=== PATIENT | male | born 1980 | race Caucasian/White ===

== ENCOUNTER 2016-12-06 10:19 | Emergency (ER) | payer MEDICAID ==
[~2016-12-06] VITALS: Ht 175.3 cm; Wt 66.5 kg
[2016-12-06 10:21] VITALS: Ht 175.3 cm; Wt 66.5 kg
--- NOTE | 2016-12-06 10:45 | ERD ---
ER Documentation Chief Complaint Date/Time DATE: 12/06/16 TIME: 10:43 Chief Complaint Pt bit by dog to R forearm 1 week ago. HPI 36-year-old male otherwise healthy presents with a dog bite to the right forearm that occurred approximately a week and a half ago. He states that he was walking his pit bull and there was a different dog that was becoming aggressive towards his dog and it has subsequently been him. He reports wound care that was done by himself at home, he has been washing it with hydrogen peroxide. He states that his pain is gone after taking ibuprofen. He has not had any fevers or chills. No difficulty with movement of the arm. His last tetanus shot was approximately 1-2 years ago. Patient states that he needs a work note to return tomorrow. ROS All systems reviewed and are negative except as per history of present illness. Physical Exam Vitals Vital Signs Date Time Temp Pulse Resp B/P Pulse Ox O2 Delivery O2 Flow Rate FiO2 12/06/16 10:21 97.3 87 18 127/75 98 Physical Exam General: Well-developed, well-nourished. The patient appears in no acute distress. HEENT: Head is normocephalic, atraumatic. No scleral icterus. Neck: Supple. Nontender. Lungs: Clear to auscultation. Normal air movement. Heart: Regular rate and rhythm. S1 and S2 are normal. No murmurs, gallops, or rubs. Abdomen: Nondistended. Extremities: No clubbing or cyanosis. Moving extremities x 4. No weakness. He is able to make a fist. Neurologic: Alert and oriented 3. No focal deficits. Normal speech and gait. Skin: Right forearm has multiple scab-like wound on the forearm, ulnar aspect of the wrist as well as the right elbow. They are dry and intact, no erythema, no drainage. Procedures/MDM 36-year-old male comes in with a dog bite from over a week ago on his right forearm, and the area is already healing, dry and intact. Wound shows no evidence of infection, foreign body, neurologic injury, vascular injury, open joint or tendon laceration. Patient appropriate for outpatient follow up. Departure Diagnosis: Primary Impression: Dog bite Condition: Good Patient Instructions: Dog Bite CHERYL MORENO PA-C Dec 06, 2016 10:45
== END 2016-12-06 11:05 | disposition home or self-care (01) ==
LOC: FTE 10:19
DX: S51.851A Open bite of right forearm, initial encounter (principal); W54.0XXA Bitten by dog, initial encounter; Y92.9 Unspecified place or not applicable
CPT/HCPCS: 99282